=== PATIENT | male | born 1950 | race Caucasian/White ===

== ENCOUNTER → 2017-05-22 | Outpatient (CLI) | payer BC ==
--- NOTE | 2017-05-22 12:18 | RADIOLOGY IMAGING REPORT ---
FACILITY: [facility] - [place] PATIENT NAME: Aníbal Ramírez : 1950 MR: [id number] V: [id number] EXAM DATE: ORDERING PHYSICIAN: O[employer] TECHNOLOGIST: Location: [facility] Patient: Aníbal Ramírez : 1950 Visit/Account:[id number] Date of Sevice: 05/22/2017 KIDNEYS COMPARISON: None. Additional pertinent history: Acute renal failure. FINDINGS: Right kidney: Negative. The right kidney measures 10.1 cm in length. Left kidney: Negative. The left kidney measures 10.6 cm in length. Urinary bladder: Negative. Ureteral jets: Negative. Retroperitoneum: Negative. Abdominal aorta and IVC: Patent. IMPRESSION: Normal renal sonogram. Report Dictated By: Sergo Nance MD at 05/22/2017 12:13 PM Report E-Signed By: Sergo Nance MD at 05/22/2017 12:14 PM WSN:[id number]
== END ==
LOC: US 11:03
PROVIDERS: ATTEND Family Medicine
DX: N17.9 Acute kidney failure, unspecified (principal)
CPT/HCPCS: 76705

== ENCOUNTER → 2017-05-30 | Outpatient (REF) | LOC: AUD 09:30 | PROVIDERS: ATTEND Internal Medicine | DX: Z01.10 Encounter for examination of ears and hearing without abnormal findings (principal) | CPT/HCPCS: 92552 ==